=== PATIENT | female | born 1975 | race Caucasian/White ===

== ENCOUNTER → 2017-08-21 | Outpatient (CLI) | payer BC ==
[~2017-08-21] MED LIST: ALPRAZOLAM1 MG PO; B12 INJ.,1000 MCG/M IM; BACTRIM DS 8001 TA1 PO; BACTRIM DS 8001 TAB PO; CYCLOBENZAPRINE TD; DIFLUCAN150 MG PO; LORAZEPAM0.5 MG/TAB PO; NATURE'S BLEND1 T16 PO; OLANZAPINE5 MG PO; PRILOSEC10 MG PO; TRAZODONE100 MG PO; VITAMIN D31000 IU PO; ZOLOFT100 MG PO
--- NOTE | 2017-08-21 16:31 | RADIOLOGY REPORT PS360 ---
CHEST(2 VIEWS-NOT PORTABLE) HISTORY: Cough with wheezing BRONCHITIS ORDERING PHYSICIAN: Mike Travis MD PATIENT AGE: 42 years COMPARISON: 01/06/2014 FINDINGS: The cardiomediastinal silhouette and pulmonary vascularity are within normal limits. The lungs are clear without infiltrates, suspicious nodules, or pleural effusions. No acute bony abnormalities. IMPRESSION: Negative chest, no acute finding
== END ==
LOC: RAD 15:51
DX: J40 Bronchitis, not specified as acute or chronic (principal)